=== PATIENT | male | born 1960 | race Caucasian/White ===

== ENCOUNTER 2017-12-26 04:36 | Emergency (ER) | payer BC ==
[2017-12-26] MEDS ORDERED: Acetaminophen 325 MG Tab PO ONE (04:48)
[2017-12-26 05:27] LABS: CHLORIDE,CL 103 mEq/L (98-106); SODIUM,NA 137 mEq/L (136-145)
--- NOTE | 2017-12-26 05:53 | EDM.PDOC ---
ED HPI GENERAL MEDICAL PROBLEM - General Chief Complaint: Fever Stated Complaint: cough, fever, headache Time Seen by Provider: 12/26/17 04:55 Source of Information: Reports: Patient History Limitations: Reports: No Limitations - History of Present Illness INITIAL COMMENTS - FREE TEXT/NARRATIVE: Amrit is a 57 yo male who presents to the ER with concerns of the flu. States his came down with it last week and is now getting better. States last night it came on really fast and noticed he was running a fever. States he has been coughing a lot as well. Admits he did take ibuprofen around 11 oclock last night. Has been trying to push fluids. Treatments DIRECTOR CORRECTIONAL AGENCY: Reports: Other (see below) Other Treatments DIRECTOR CORRECTIONAL AGENCY: IBUPROFEN Headache Pain Score (Numeric/FACES): 6 - Related Data Allergies Allergy/AdvReac Type Severity Reaction Status Date / Time No Known Allergies Allergy Verified 12/26/17 04:49 Home Meds: Home Meds Omeprazole 20 mg PO DAILY 12/26/17 [History] amLODIPine [Norvasc] 5 mg PO DAILY 12/26/17 [History] Past Medical History HEENT History: Reports: Impaired Vision Cardiovascular History: Reports: Hypertension Respiratory History: Reports: Asthma, Pneumonia, Recurrent Musculoskeletal History: Reports: Arthritis - Past Surgical History GI Surgical History: Reports: Cholecystectomy, Hernia, Abdominal Social & Family History - Tobacco Use Smoking Status *Q: Current Every Day Smoker Years of Tobacco use: 35 Packs/Tins Daily: 1 ED ROS GENERAL - Review of Systems Review Of Systems: See Below Constitutional: Reports: Fever, Chills, Diaphoresis HEENT: Reports: Rhinitis Respiratory: Reports: Cough. Denies: Shortness of Breath, Wheezing Cardiovascular: Reports: No Symptoms GI/Abdominal: Reports: No Symptoms Neurological: Reports: Headache ED EXAM, GENERAL - Physical Exam Exam: See Below Exam Limited By: No Limitations General Appearance: Alert, Mild Distress Ears: Normal External Exam, Normal Canal, Hearing Grossly Normal, Normal TMs Nose: Normal Inspection, Normal Mucosa, No Blood Throat/Mouth: Normal Inspection, Normal Lips, Normal Teeth, Normal Gums, Normal Oropharynx, Normal Voice, No Airway Compromise Head: Atraumatic, Normocephalic Neck: Normal Inspection Respiratory/Chest: No Respiratory Distress, Lungs Clear, No Accessory Muscle Use Cardiovascular: No Murmur, Tachycardia Peripheral Pulses: 2+: Dorsalis Pedis (L), Dorsalis Pedis (R) Extremities: Normal Inspection, No Pedal Edema, Normal Capillary Refill Neurological: Alert, No Motor/Sensory Deficits Skin Exam: Dry, Intact, Normal Color, No Rash, Increased Warmth Course - Vital Signs Last Recorded V/S: Last Vital Signs Temp 103.3 F H 12/26/17 05:20 Pulse 130 H 12/26/17 05:33 Resp 20 12/26/17 04:49 BP 127/87 12/26/17 04:49 Pulse Ox 93 L 12/26/17 05:33 - Orders/Labs/Meds Orders: Active Orders 24 hr Category Date Time Status Chest 2V [CR] Routine Exams 12/26/17 Taken Labs: Laboratory Tests 12/26/17 12/26/17 Range/Units 04:55 04:55 WBC 5.9 (5.0-10.0) 10^3/uL RBC 4.67 (4.50-6.00) 10^6/uL Hgb 15.0 (14.0-18.0) g/dL Hct 42.6 (40.0-54.0) % MCV 91.2 (82.0-94.0) fL MCH 32.1 H (27.0-32.0) pg MCHC 35.2 (33.0-38.0) g/dL RDW Coeff of Génesis 13.5 (11.0-15.0) % Plt Count 198 (150-400) 10^3/uL Neut % (Auto) 83.9 (35-85) % Lymph % (Auto) 4.4 L (10-55) % Hood % (Auto) 10.5 (0-16) % Eos % (Auto) 0.5 (0-5) % Baso % (Auto) 0.7 (0-3) % Neut # (Auto) 4.96 (1.80-7.00) 10^3/uL Lymph # (Auto) 0.26 L (1.00-4.80) 10^3/uL Hood # (Auto) 0.62 (0.00-0.80) 10^3/uL Eos # (Auto) 0.03 (0.00-0.45) 10^3/uL Baso # (Auto) 0.04 10^3/uL Sodium 137 (136-145) mEq/L Potassium 3.5 (3.5-5.0) mEq/L Chloride 103 (98-106) mEq/L Carbon Dioxide 22 (21-32) mmol/L BUN 12 (7-18) mg/dL Creatinine 1.2 (0.7-1.3) mg/dL Est Cr Clr Drug Dosing 73.21 mL/min Estimated GFR (MDRD) > 60 (>=60) mL/min Glucose 121 H (75-99) mg/dL Calcium 8.5 (8.4-10.1) mg/dL Total Bilirubin 0.4 (0.0-1.0) mg/dL AST 23 (15-37) U/L ALT 45 (12-78) U/L Alkaline Phosphatase 70 (46-116) U/L C-Reactive Protein 4.4 H (0.2-0.8) mg/dL Total Protein 6.9 (6.4-8.2) g/dL Albumin 3.4 (3.4-5.0) g/dL Meds: Medications Discontinued Medications Generic Name Dose Route Start Last Admin Trade Name Mariaelena PRN Reason Stop Dose Admin Acetaminophen 650 mg 12/26/17 04:48 12/26/17 04:54 Tylenol PO 12/26/17 04:49 650 mg NOW ONE Administration - Radiology Interpretation Free Text/Narrative:: Chest X-ray is stable, no infiltrate or consolidation noted. Departure - Departure Time of Disposition: 05:53 Disposition: Home, Self-Care 01 Clinical Impression: Influenza - Discharge Information Additional Instructions: 1) Push fluids as discussed 2) Tamiflu 75mg BID for 5 days 3) Nebulizer prescription given, use as directed 4) Promethazine with codeine, 1-2 tspful every 4-6 hours as needed for cough 5) Refrain from returning to work until 24 hours afebrile 6) If symptoms worsen... you need to return to the ER as we discussed as well. - Problem List & Annotations (1) Influenza SNOMED Code(s): 4984348 Code(s): J11.1 - FLU DUE TO UNIDENTIFIED INFLUENZA VIRUS W OTH RESP MANIFEST Status: Acute Priority: High - Problem List Review Problem List Initiated/Reviewed/Updated: Yes - My Orders Last 24 Hours: My Active Orders 12/26/17 Chest 2V [CR] Routine - Assessment/Plan Last 24 Hours: My Active Orders 12/26/17 Chest 2V [CR] Routine Plan: Discussed findings and laboratory results with Amrit. Recommended IV fluids and monitoring temperature in extended ER, which he declined. He felt he can drink fluids just fine at home. He is willing to going home and resting. If symptoms worsen he said he would return to the ER.
[2017-12-26] MEDS ORDERED: Oseltamivir 75 MG Cap PO ONE (06:07)
== END 2017-12-26 06:25 | disposition home or self-care (01) ==
LOC: MERGE 04:36 → CC.ED 04:36
DX: J10.1 Influenza due to other identified influenza virus with other respiratory manifestations (principal); I10 Essential (primary) hypertension; J45.909 Unspecified asthma, uncomplicated; F17.210 Nicotine dependence, cigarettes, uncomplicated
CPT/HCPCS: 36415; 71046; 80053; 85025; 86140; 87804; 99283; A9270